=== PATIENT | male | born 2000 | race Caucasian/White ===

== ENCOUNTER 2021-09-30 10:24 | Emergency (ER) | payer OTHER, BC ==
[~2021-09-30] VITALS: Ht 182.9 cm; Wt 113.4 kg
[2021-09-30] MEDS ORDERED: ERYT.5TO BOTHEYES (12:11)
[2021-09-30] MEDS ORDERED: IBUP800 PO (12:11)
[2021-09-30] MEDS ORDERED: Norco 5-325 Ta1 EACH PO (12:11)
== END 2021-09-30 12:26 | disposition home or self-care (01) ==
LOC: ER 10:24
DX: S02.32XA Fracture of orbital floor, left side, initial encounter for closed fracture (principal); S05.02XA Injury of conjunctiva and corneal abrasion without foreign body, left eye, initial encounter; W22.8XXA Striking against or struck by other objects, initial encounter
CPT/HCPCS: 70450; 70486; 93005; 93010; A9270